=== PATIENT | male | born 1975 | race African-American/Black ===

== ENCOUNTER 2020-02-25 19:45 | Emergency (ER) | payer SELFPAY ==
[~2020-02-25] VITALS: Ht 185.4 cm; Wt 67.0 kg
[2020-02-25 21:16] LABS: URINE BLOOD DIPSTICK NEGATIVE (NEGATIVE); URINE CLARITY CLEAR; URINE COLOR YELLOW; URINE GLUCOSE - DIPSTICK NEGATIVE (NEGATIVE); URINE KETONE TRACE mg/dL (NEGATIVE); URINE LEUK ESTERASE NEGATIVE (Negative); URINE NITRITE - DIPSTICK NEGATIVE (Negative); URINE PH 5.5 (4.5-8.0); URINE PROTEIN - DIPSTICK TRACE mg/dL (NEG-TRACE); URINE SPECIFIC GRAVITY 1.025
[2020-02-25 21:23] LABS: URINE BILIRUBIN - DIPSTICK SMALL (NEGATIVE)
[2020-02-25] MEDS ORDERED: ORPHENADRINE C100 MG PO (23:07)
[2020-02-25] MEDS ORDERED: TORADOL PO (23:07)
[2020-02-25 23:50] VITALS: BP 114/74
== END 2020-02-25 23:50 | disposition home or self-care (01) | DRG 552 ==
LOC: ED 19:45
PROVIDERS: Emergency Medicine
DX: M54.5 Low back pain (principal); G89.29 Other chronic pain; F17.210 Nicotine dependence, cigarettes, uncomplicated